=== PATIENT | female | born 2000 | race Caucasian/White ===

== ENCOUNTER 2019-07-21 21:03 | Emergency (ER) | payer OTHER ==
[2019-07-22] MEDS ORDERED: ONDANSETRON 4 MG/2 ML VIAL ONE (00:16)
[2019-07-22] MEDS ORDERED: ACETAMINOPHEN 325 MG TABLET ONE (00:16)
[2019-07-22] MEDS ORDERED: NA CHLORIDE 0.9% 1,000 ML ONE ×2 (00:16→01:16)
[2019-07-22 00:52] LABS: Absolute Lymphocytes (CBC) 0.9 K/uL (0.7-4.9); Basophils % 0.3 % (0-1.3); Hematocrit 39.7 % (36.0-45.0); Lymphocytes % 13.2 % (15.3-44.8); MPV 9.7 fL (7.6-11.3)
[2019-07-22 01:40] LABS: ALT/SGPT 36 U/L (12-78); AST/SGOT 24 U/L (15-37); Alkaline Phosphatase 96 U/L (45-117); BUN Blood Urea Nitrogen 9 mg/dL (7-18); Bicarbonate 25 mmol/L (21-32); Bilirubin Direct 0.1 mg/dL (0-0.2); Bilirubin Total 0.2 mg/dL (0.2-1.0); Glucose Level 93 mg/dL (74-106); Lipase 65 U/L (73-393); Potassium 3.6 mmol/L (3.5-5.1); Protein, Total 6.3 g/dL (6.4-8.2); Sodium Level 141 mmol/L (136-145)
[2019-07-22 01:42] LABS: Urine Blood 3+ (NEG); Urine Glucose NEGATIVE (NEG); Urine Protein NEGATIVE (NEG)
--- NOTE | 2019-07-22 02:59 | ER ---
Nurse's Notes [facility] Name: Ginger Zeng Age: 19 yrs Sex: Female : 2000 Arrival Date: 07/21/2019 Time: 21:06 Bed 17 Private MD: Diagnosis: Fever, unspecified;Abdominal tenderness;Vomiting;Diarrhea, unspecified Presentation: 07/21 21:49 Presenting complaint: Patient states: Reports this AM she started having stomach pain, ea nausea, vomiting and diarrhea x 1 at 3 AM. Transition of care: patient was not received from another setting of care. Onset of symptoms was July 21, 2019. Risk Assessment: Do you want to hurt yourself or someone else? Patient reports no desire to harm self or others. Initial Sepsis Screen: Does the patient meet any 2 criteria? Temp <36.0*C (96.8*F)) or > 38.3*C (100.9*F). Yes. Care prior to arrival: None. 21:49 Method Of Arrival: Ambulatory ea 21:49 Acuity: BRIGITTE 3 ea 07/22 03:25 Initial Sepsis Screen: Does the patient have a suspected source of infection? No. lc1 Patient's initial sepsis screen is negative. 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 - Social history:: Smoking status: Patient/guardian denies using tobacco. - Ebola Screening: : Patient denies travel to an Ebola-affected area in the 21 days before illness onset. - Family history:: not pertinent. Screenin:50 Abuse screen: Denies threats or abuse. Nutritional screening: No deficits noted. ea Tuberculosis screening: No symptoms or risk factors identified. Fall Risk None identified. Assessment: 07/22 00:00 General: Appears in no apparent distress. comfortable, Behavior is calm, cooperative. lc1 Pain: Complains of pain in abdomen Pain currently is 4 out of 10 on a pain scale. Quality of pain is described as pressure, Pain began early this am Is intermittent. Neuro: No deficits noted. Cardiovascular: No deficits noted. Respiratory: No deficits noted. GI: Bowel sounds present X 4 quads. Abd is soft Abdomen is tender to palpation X 4 quads. Reports lower abdominal pain, diarrhea, nausea, vomiting. : No signs and/or symptoms were reported regarding the genitourinary system. EENT: No signs and/or symptoms were reported regarding the EENT system. Derm: No signs and/or symptoms reported regarding the dermatologic system. Musculoskeletal: No signs and/or symptoms reported regarding the musculoskeletal system. 01:00 Reassessment: No changes from previously documented assessment. Patient and/or family lc1 updated on plan of care and expected duration. Pain level reassessed. Patient is alert, oriented x 3, equal unlabored respirations, skin warm/dry/pink. Patient states feeling better. 02:00 Reassessment: No changes from previously documented assessment. Patient and/or family lc1 updated on plan of care and expected duration. Pain level reassessed. Patient is alert, oriented x 3, equal unlabored respirations, skin warm/dry/pink. Patient states feeling better. 03:00 Reassessment: No changes from previously documented assessment. Patient and/or family lc1 updated on plan of care and expected duration. Pain level reassessed. Patient is alert, oriented x 3, equal unlabored respirations, skin warm/dry/pink. Patient states feeling better. Vital Signs: 07/21 21:51 BP 108 / 75; Pulse 90; Resp 18; Temp 100.3; Pulse Ox 99% ; Weight 97.52 kg; Height 5 ea ft. 10 in. (177.80 cm); Pain 02/03; 07/22 00:17 BP 111 / 74; Pulse 111; Resp 18; Temp 100.1(O); Pulse Ox 100% on R/A; 5 01:00 BP 112 / 71; Pulse 83; Resp 18; Temp 100.4(O); Pulse Ox 98% ; lc1 01:45 BP 120 / 70; Pulse 82; Resp 16; Pulse Ox 100% on R/A; lc1 02:45 BP 104 / 70; Pulse 84; Resp 18; Temp 99.3(O); Pulse Ox 98% on R/A; lc1 07/21 21:51 Body Mass Index 30.85 (97.52 kg, 177.80 cm) ED Course: 12/25 21:06 Patient arrived in ED. as 21:50 Triage completed. jael 23:13 Edmundo Carrero MD is Attending Physician. kathryn 23:31 Melinda Hemphill is Primary Nurse. 1 07/22 00:00 No provider procedures requiring assistance completed. Initial lab(s) drawn, by sd, lc1 sent to lab. Urine collected: clean catch specimen, clear. Inserted saline lock: 20 gauge in right antecubital area, using aseptic technique. Blood collected. 00:05 Radiology exam delayed due to lab results not completed at this time. (BUN/Creatinine) sj test not completed at this time. IV insertion attempt and/or patient not having appropriate IV at this time. 00:18 Patient has correct armband on for positive identification. Placed in gown. Bed in low mh5 position. Call light in reach. Side rails up X 1. Adult w/ patient. Warm blanket given. Pulse ox on. NIBP on. 02:00 Patient notified of wait time. 1 02:06 CT Abd/Pelvis - IV Contrast Only In Process Unspecified. EDMS 03:25 IV discontinued, intact, bleeding controlled, Pressure dressing applied. lc1 Administered Medications: 00:10 Drug: NS 0.9% 1000 ml Route: IV; Rate: 1 bolus; Site: right antecubital; lc1 01:16 Follow up: Response: No adverse reaction; IV Status: Completed infusion lc1 00:10 Drug: Tylenol 650 mg Route: PO; lc1 03:27 Follow up: Response: No adverse reaction lc1 00:10 Drug: Zofran 4 mg Route: IVP; Site: right antecubital; lc1 03:27 Follow up: Response: No adverse reaction lc1 01:16 Drug: NS 0.9% 1000 ml Route: IV; Rate: 1 bolus; Site: right antecubital; lc1 03:01 Follow up: Response: No adverse reaction lc1 03:27 Follow up: Response: No adverse reaction; IV Status: Completed infusion lc1 03:07 Drug: Motrin 800 mg Route: PO; 1 03:23 Follow up: Response: No adverse reaction [facility] Outcome: 02:56 Discharge ordered by . kathryn 03:24 Discharged to home ambulatory. 1 03:24 Condition: good 03:24 Discharge instructions given to patient, Instructed on discharge instructions, follow up and referral plans. medication usage, Demonstrated understanding of instructions, follow-up care, medications, Prescriptions given X 3. 03:26 Patient left the ED. lc1 Signatures: Dispatcher [employer] EDMS Edmundo Carrero, MD MD kathryn Knutson, Vicky Forrest, Melinda Burgess lc1 Judy Forrest [facility] Ariane Flowers RN RN jael
--- NOTE | 2019-07-22 03:00 | EDPHYS ---
Physician Documentation [facility] Name: Ginger Zeng Age: 19 yrs Sex: Female : 2000 Arrival Date: 07/21/2019 Time: 21:06 Bed 17 Private MD: ED Physician Edmundo Carrero HPI: 07/22 00:31 This 19 yrs old Female presents to ER via Ambulatory with complaints of kathryn Abdominal Pain. 00:31 The patient presents with abdominal pain in the upper abdomen, in the lower abdomen, kathryn abdominal distention in the epigastric area. Onset: The symptoms/episode began/occurred 1 day(s) ago. The patient presents to the emergency department with nausea, vomiting. Onset: The symptoms/episode began/occurred 1 day(s) ago. Possible causes: unknown. The symptoms are aggravated by nothing. The symptoms are alleviated by nothing. Associated signs and symptoms: Pertinent positives: abdominal pain, fever, nausea, vomiting. 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 - Social history:: Smoking status: Patient/guardian denies using tobacco. - Ebola Screening: : Patient denies travel to an Ebola-affected area in the 21 days before illness onset. - Family history:: not pertinent. ROS: 07/22 00:31 Constitutional: Negative for fever, chills, and weight loss, Eyes: Negative for injury, kathryn pain, redness, and discharge, ENT: Negative for injury, pain, and discharge, Neck: Negative for injury, pain, and swelling, Cardiovascular: Negative for chest pain, palpitations, and edema, Respiratory: Negative for shortness of breath, cough, wheezing, and pleuritic chest pain, Back: Negative for injury and pain, : Negative for injury, bleeding, discharge, and swelling, MS/Extremity: Negative for injury and deformity, Skin: Negative for injury, rash, and discoloration, Neuro: Negative for headache, weakness, numbness, tingling, and seizure, Psych: Negative for depression, anxiety, suicide ideation, homicidal ideation, and hallucinations, Allergy/Immunology: Negative for hives, rash, and allergies, Endocrine: Negative for neck swelling, polydipsia, polyuria, polyphagia, and marked weight changes, Hematologic/Lymphatic: Negative for swollen nodes, abnormal bleeding, and unusual bruising. Abdomen/GI: Positive for abdominal pain, nausea and vomiting, diarrhea. Exam: 00:31 Constitutional: This is a well developed, well nourished patient who is awake, alert, kathryn and in no acute distress. Head/Face: Normocephalic, atraumatic. Eyes: Pupils equal round and reactive to light, extra-ocular motions intact. Lids and lashes normal. Conjunctiva and sclera are non-icteric and not injected. Cornea within normal limits. Periorbital areas with no swelling, redness, or edema. ENT: Nares patent. No nasal discharge, no septal abnormalities noted. Tympanic membranes are normal and external auditory canals are clear. Oropharynx with no redness, swelling, or masses, exudates, or evidence of obstruction, uvula midline. Mucous membranes moist. Neck: Trachea midline, no thyromegaly or masses palpated, and no cervical lymphadenopathy. Supple, full range of motion without nuchal rigidity, or vertebral point tenderness. No Meningismus. Chest/axilla: Normal chest wall appearance and motion. Nontender with no deformity. No lesions are appreciated. Cardiovascular: Regular rate and rhythm with a normal S1 and S2. No gallops, murmurs, or rubs. Normal PMI, no JVD. No pulse deficits. Respiratory: Lungs have equal breath sounds bilaterally, clear to auscultation and percussion. No rales, rhonchi or wheezes noted. No increased work of breathing, no retractions or nasal flaring. Back: No spinal tenderness. No costovertebral tenderness. Full range of motion. Female : Normal external genitalia. Skin: Warm, dry with normal turgor. Normal color with no rashes, no lesions, and no evidence of cellulitis. MS/ Extremity: Pulses equal, no cyanosis. Neurovascular intact. Full, normal range of motion. Neuro: Awake and alert, GCS 15, oriented to person, place, time, and situation. Cranial nerves II-XII grossly intact. Motor strength 5/5 in all extremities. Sensory grossly intact. Cerebellar exam normal. Normal gait. Psych: Awake, alert, with orientation to person, place and time. Behavior, mood, and affect are within normal limits. 00:31 Abdomen/GI: Inspection: abdomen appears normal, Bowel sounds: normal, Palpation: moderate abdominal tenderness, in the right upper quadrant, left upper quadrant, right lower quadrant and left lower quadrant, Liver: no appreciated palpable abnormalities, Hernia: not appreciated. Vital Signs: 07/21 21:51 BP 108 / 75; Pulse 90; Resp 18; Temp 100.3; Pulse Ox 99% ; Weight 97.52 kg; Height 5 ea ft. 10 in. (177.80 cm); Pain 7/10; 07/22 00:17 BP 111 / 74; Pulse 111; Resp 18; Temp 100.1(O); Pulse Ox 100% on R/A; mh5 01:00 BP 112 / 71; Pulse 83; Resp 18; Temp 100.4(O); Pulse Ox 98% ; lc1 01:45 BP 120 / 70; Pulse 82; Resp 16; Pulse Ox 100% on R/A; lc1 02:45 BP 104 / 70; Pulse 84; Resp 18; Temp 99.3(O); Pulse Ox 98% on R/A; lc1 07/21 21:51 Body Mass Index 30.85 (97.52 kg, 177.80 cm) ea MDM: 07/21 23:13 Patient medically screened. [facility] 07/22 00:33 Data reviewed: vital signs, nurses notes, lab test result(s), radiologic studies. [facility] 07/21 23:12 Order name: Basic Metabolic Panel; Complete Time: 01:44 [facility] 07/21 23:12 Order name: CBC with Diff; Complete Time: 01:04 [facility] 07/21 23:12 Order name: Creatinine for Radiology; Complete Time: 01:44 [facility] 07/21 23:12 Order name: Hepatic Function; Complete Time: 01:44 [facility] 07/21 23:12 Order name: Lipase; Complete Time: 01:44 [facility] 07/21 23:12 Order name: Urine Culture [facility] 07/21 23:12 Order name: CT Abd/Pelvis - IV Contrast Only [facility] 07/22 00:13 Order name: Urine Dipstick--Ancillary (enter results); Complete Time: 01:44 [facility] 07/22 00:13 Order name: Urine --Ancillary (enter results); Complete Time: 01:44 [facility] 07/21 23:12 Order name: IV Saline Lock; Complete Time: 00:24 [facility] 07/21 23:12 Order name: Labs collected and sent; Complete Time: 00:24 [facility] 07/21 23:12 Order name: Urine Dipstick-Ancillary (obtain specimen); Complete Time: 00:24 [facility] 07/21 23:12 Order name: Urine Test (obtain specimen); Complete Time: 00:24 [facility] 07/22 02:57 Order name: PO challenge; Complete Time: 03:23 [facility] Administered Medications: 00:10 Drug: NS 0.9% 1000 ml Route: IV; Rate: 1 bolus; Site: right antecubital; 1 01:16 Follow up: Response: No adverse reaction; IV Status: Completed infusion 1 00:10 Drug: Tylenol 650 mg Route: PO; 1 03:27 Follow up: Response: No adverse reaction 1 00:10 Drug: Zofran 4 mg Route: IVP; Site: right antecubital; 1 03:27 Follow up: Response: No adverse reaction [facility] 01:16 Drug: NS 0.9% 1000 ml Route: IV; Rate: 1 bolus; Site: right antecubital; 1 03:01 Follow up: Response: No adverse reaction 1 03:27 Follow up: Response: No adverse reaction; IV Status: Completed infusion 1 03:07 Drug: Motrin 800 mg Route: PO; [facility] 03:23 Follow up: Response: No adverse reaction [facility] Disposition: 07/22/19 02:56 Discharged to Home. Impression: Fever, unspecified, Abdominal tenderness, Vomiting, Diarrhea, unspecified. - Condition is Stable. - Discharge Instructions: Abdominal Pain, Adult, Food Choices to Help Relieve Diarrhea, Adult, Diarrhea, Adult, Fever, Adult, Nausea and Vomiting, Adult, Nausea and Vomiting, Adult, Oiko-eo-Rhio, Abdominal Pain, Adult, Yher-ic-Vsfg, Diarrhea, Adult, Plpq-it-[id number]. - Prescriptions for Bentyl 20 mg Oral Tablet - take 1 tablet by ORAL route every 6 hours As needed; 20 tablet. Pepcid 20 mg Oral Tablet - take 1 tablet by ORAL route every 12 hours for 10 days; 20 tablet. Zofran 4 mg Oral Tablet - take 1 tablet by ORAL route every 12 hours As needed; 20 tablet. - Medication Reconciliation Form, Thank You Letter, Antibiotic Education, Prescription Opioid Use form. - Follow up: Private Physician; When: 2 - 3 days; Reason: Recheck today's complaints, Continuance of care, Re-evaluation by your physician. - Problem is new. - Symptoms have improved. Signatures: Dispatcher [employer] EDMS Edmundo Carrero MD MD cha Calhoun, Melinda lc1 Ariane Flowers RN RN ea Corrections: (The following items were deleted from the chart) 03:26 02:56 07/22/2019 02:56 Discharged to Home. Impression: Fever, unspecified; Abdominal lc1 tenderness; Vomiting; Diarrhea, unspecified. Condition is Stable. Discharge Instructions: Abdominal Pain, Adult, Food Choices to Help Relieve Diarrhea, Adult, Diarrhea, Adult, Fever, Adult, Nausea and Vomiting, Adult, Nausea and Vomiting, Adult, [id number]-ls-[id number], Abdominal Pain, Adult, [id number]-[id number]-Opbn, Diarrhea, Adult, Xzis-yi-Wzwi. Prescriptions for Bentyl 20 mg Oral Tablet - take 1 tablet by ORAL route every 6 hours As needed; 20 tablet, Pepcid 20 mg Oral Tablet - take 1 tablet by ORAL route every 12 hours for 10 days; 20 tablet, Zofran 4 mg Oral Tablet - take 1 tablet by ORAL route every 12 hours As needed; 20 tablet. and Forms are Medication Reconciliation Form, Thank You Letter, Antibiotic Education, Prescription Opioid Use. Follow up: Private Physician; When: 2 - 3 days; Reason: Recheck today's complaints, Continuance of care, Re-evaluation by your physician. Problem is new. Symptoms have improved. kathryn
[2019-07-22] MEDS ORDERED: IBUPROFEN 400 MG TAB ONE (03:07)
[2019-07-22 04:44] VITALS: BP 104/70; TEMP 99.3; O2SAT 98
--- NOTE | 2019-07-22 10:44 | RAD REPORT ---
EXAM DESCRIPTION: Abdomen Pelvis W Contrast CLINICAL HISTORY: ABD PAIN COMPARISON: None. TECHNIQUE: CT ABDOMEN PELVIS WITH IV CONTRAST on 07/21/2019 11:12 PM OFFICE TECHNOLOGIST This exam was performed according to our departmental dose-optimization program, which includes autom ated exposure control, adjustment of the mA and/or kV according to patient size and/or use of iterati ve reconstruction technique. FINDINGS: Lower lungs are clear. Abdomen: Liver is fatty in attenuation. There is no biliary dilatation. Gallbladder is normal in appe arance. The pancreas and spleen are normal in appearance. The adrenal glands and kidneys are unremark able. Abdominal aorta is normal in course and caliber without aneurysm. There is no free air. There is no r etroperitoneal adenopathy. Pelvis: There is no bowel obstruction. Urinary bladder is unremarkable. There is trace free pelvic fl uid. Uterus is normal in size. Appendix is not clearly seen. Skeleton: There are no acute osseous findings. No suspicious bony lesions. IMPRESSION: No definite acute process. Electronically signed by: Neri Kirkpatrick MD 07/22/2019 2:45 AM OFFICE TECHNOLOGIST Due to temporary technical issues with the PACS/Fluency reporting system, reports are being signed by the in house radiologist as a courtesy to ensure prompt reporting. The interpreting radiologist is f ully responsible for the content of the report.
== END 2019-07-22 03:26 | disposition home or self-care (01) ==
LOC: ER 21:03
DX: R10.816 Epigastric abdominal tenderness (principal); R11.10 Vomiting, unspecified; R19.7 Diarrhea, unspecified; Z88.0 Allergy status to penicillin
CPT/HCPCS: 96361; 87088; 85025; 87086; 80048; 36415; 81025; 80076; 81003; 83690; 74177; 96374; 99284; Q9967; J7030 ×2; J2405

== ENCOUNTER 2024-07-15 02:01 | Emergency (ER) | payer OTHER ==
--- NOTE | 2024-07-15 02:57 | EDPHYS ---
Physician Documentation [facility] Name: Ginger Zeng Age: 24 yrs Sex: Female : 2000 Arrival Date: 07/15/2024 Time: 02:01 Bed 11 Private MD: ED Physician Sam Alexander HPI: 07/15 02:08 This 24 yrs old Female presents to ER via Unassigned with complaints of Ear sp4 Pain. 07/16 00:40 Very pleasant 24-year-old female presents with complaint of left ear ringing. Patient sp4 states she will forcefully sneezed yesterday causing left ear pain in the ringing . Patient reports that this is very unpleasant.. 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 - Infectious Disease History:: Denies. - Social history:: Smoking status: Patient denies any tobacco usage or history of. - Family history:: not pertinent. ROS: 07/16 00:40 Constitutional: Negative for fever, chills, and weight loss, positive for left ear sp4 tinnitus All other systems are negative, Exam: 00:40 Constitutional: This is a well developed, well nourished patient who is awake, alert, sp4 and in no acute distress. Head/Face: Normocephalic, atraumatic. Eyes: Pupils equal round and reactive to light, extra-ocular motions intact. Lids and lashes normal. Conjunctiva and sclera are not injected. Cornea within normal limits. Periorbital areas with no swelling, redness, or edema. ENT: Nares patent. No nasal discharge, no septal abnormalities noted. Tympanic membranes are normal and external auditory canals are clear. Oropharynx with no redness, swelling, or masses, exudates, or evidence of obstruction, uvula midline. Mucous membranes moist. Neck: Trachea midline, no thyromegaly or masses palpated, and no cervical lymphadenopathy. Supple, full range of motion without nuchal rigidity, or vertebral point tenderness. Chest/axilla: Normal chest wall appearance and motion. Nontender with no deformity. No lesions are appreciated. Cardiovascular: Regular rate and rhythm with a normal S1 and S2. No gallops, murmurs, or rubs. Normal PMI, no JVD. No pulse deficits. Respiratory: Lungs have equal breath sounds bilaterally, clear to auscultation and percussion. No rales, rhonchi or wheezes noted. No increased work of breathing, no retractions or nasal flaring. Abdomen/GI: Soft, with normal bowel sounds. No distension or tympany. No guarding or rebound. No evidence of tenderness throughout. Back: No spinal tenderness. No costovertebral tenderness. Skin: Warm, dry with normal turgor. Normal color with no rashes, no lesions, and no evidence of cellulitis. MS/ Extremity: Pulses equal, no cyanosis. Neurovascular intact. Full, normal range of motion. Neuro: Awake and alert, GCS 15, oriented to person, place, time, and situation. Cranial nerves II-XII grossly intact. Motor strength 5/5 in all extremities. Sensory grossly intact. Psych: Awake, alert, with orientation to person, place and time. Behavior, mood, and affect are within normal limits Vital Signs: 07/15 02:18 Pulse 65; Resp 17; Temp 98.2(O); Pulse Ox 99% on R/A; Weight 117.93 kg; Height 5 ft. 10 kd3 in. ; Pain 7/10; 02:19 BP 122 / 79; kd3 02:19 BP 122 / 79; kd3 02:18 Body Mass Index 37.31 (117.93 kg, 177.8 cm) kd3 02:18 Pain Scale: Adult kd3 [place] Coma Score: 07/16 00:40 Eye Response: spontaneous(4). Motor Response: obeys commands(6). Verbal Response: sp4 oriented(5). Total: 15. MDM: 07/15 02:18 Medical Screening Exam initiated sp4 07/16 00:40 Differential diagnosis: otitis media, otitis externa, ruptured TM, foreign body, acute sp4 otalgia. Data reviewed: vital signs, nurses notes. ED course: Bilateral ear exam is basically normal. We will provide some decongesting medication and also recommend as needed ibuprofen. No further concerns at this time. Patient may elect to visit with patient ENT office for further evaluation in case tinnitus does not resolve. . Administered Medications: 07/15 03:10 Drug: Ibuprofen PO 800 mg PO once Route: PO; kl 03:10 Drug: diphenhydrAMINE PO 25 mg PO once Route: PO; kl 03:10 Not Given (Other Intervention Used): [id number] mg PO once kl Disposition: 07/16 00:43 Chart complete. sp4 Disposition Summary: 07/15/24 02:56 Discharge Ordered Problem: new sp4 Symptoms: have improved sp4 Condition: Stable sp4 Diagnosis - Acute Left Tinnitis sp4 - Tinnitus, left ear sp4 Followup: sp4 - With: Shawna Schulz MD - When: 7 - 10 days - Reason: Recheck today's complaints Discharge Instructions: - Discharge Summary Sheet sp4 - Tinnitus sp4 Forms: - Patient Portal Instructions sp4 Signatures: Shannen Infante RN RN kl Doucette, Kyli, RN RN kd3 Sam Alexander MD MD sp4
--- NOTE | 2024-07-15 02:57 | ER ---
Nurse's Notes [facility] [place] Name: Ginger Zeng Age: 24 yrs Sex: Female : 2000 Arrival Date: 07/15/2024 Time: 02:01 Bed 11 Private MD: Diagnosis: Acute Left Tinnitis ;Tinnitus, left ear Presentation: 07/15 02:19 Chief complaint: Patient states: I have 7/10 pain in my left ear since Friday. 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 Coronavirus screen: Vaccine status: Patient reports receiving the 2nd dose of the covid vaccine. Ebola Screen: No symptoms or risks identified at this time. Initial Sepsis Screen: Does the patient meet any 2 criteria? No. Patient's initial sepsis screen is negative. Does the patient have a suspected source of infection? No. Patient's initial sepsis screen is negative. Risk Assessment: Do you want to hurt yourself or someone else? Patient reports no desire to harm self or others. Onset of symptoms was July 14, 2024. 02:19 Method Of Arrival: Ambulatory kd3 02:19 Acuity: BRIGITTE 4 kd3 Triage Assessment: 02:21 General: Appears in no apparent distress. Behavior is calm, cooperative. Pain: kd3 Complains of pain in left ear. EENT: Reports pain in left ear. 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 - Infectious Disease History:: Denies. - Social history:: Smoking status: Patient denies any tobacco usage or history of. - Family history:: not pertinent. Screenin:11 [facility] ED Fall Risk Assessment (Adult) History of falling in the last 3 months, kl including since admission No falls in past 3 months (0 pts) Confusion or Disorientation No (0 pts) Intoxicated or Sedated No (0 pts) Impaired Gait No (0 pts) Mobility Assist Device Used No (0 pt) Altered Elimination No (0 pt) Score/Fall Risk Level 0 - 2 = Low Risk Oriented to surroundings, Maintained a safe environment. Abuse screen: Denies threats or abuse. Nutritional screening: No deficits noted. Tuberculosis screening: No symptoms or risk factors identified. Assessment: 03:10 General: Appears in no apparent distress. Behavior is calm, cooperative. Pain: melquiades Complains of pain in left ear Pain currently is 3 out of 10 on a pain scale. Neuro: No deficits noted. Cardiovascular: No deficits noted. Respiratory: No deficits noted. GI: No deficits noted. : No deficits noted. No signs and/or symptoms were reported regarding the genitourinary system. EENT: No deficits noted. No signs and/or symptoms were reported regarding the EENT system. Derm: No deficits noted. No signs and/or symptoms reported regarding the dermatologic system. Musculoskeletal: No deficits noted. No signs and/or symptoms reported regarding the musculoskeletal system. Vital Signs: 02:18 Pulse 65; Resp 17; Temp 98.2(O); Pulse Ox 99% on R/A; Weight 117.93 kg; Height 5 ft. 10 kd3 in. ; Pain 7/10; 02:19 BP 122 / 79; kd3 02:19 BP 122 / 79; kd3 02:18 Body Mass Index 37.31 (117.93 kg, 177.8 cm) kd3 02:18 Pain Scale: Adult kd3 [place] Coma Score: 07/16 00:40 Eye Response: spontaneous(4). Motor Response: obeys commands(6). Verbal Response: sp4 oriented(5). Total: 15. ED Course: 07/15 02:03 Patient arrived in ED. gm2 02:08 Sam Alexander MD is Attending Physician. sp4 02:21 Triage completed. kd3 02:21 Arm band placed on right wrist. kd3 02:56 Shawna Schulz MD is Referral Physician. sp4 02:57 Carmen Chawla RN is Primary Nurse. kd3 03:11 No provider procedures requiring assistance completed. Patient did not have IV access kl during this emergency room visit. 03:12 Patient has correct armband on for positive identification. kl Administered Medications: 03:10 Drug: Ibuprofen PO 800 mg PO once Route: PO; kl 03:10 Drug: diphenhydrAMINE PO 25 mg PO once Route: PO; kl 03:10 Not Given (Other Intervention Used): [id number] mg PO once kl Medication: 03:12 VIS not applicable for this client. melquiades Outcome: 02:56 Discharge ordered by MD. ha 03:12 Discharged to home ambulatory, melquiades 03:12 Condition: stable 03:12 Discharge instructions given to patient, Instructed on discharge instructions, follow up and referral plans. medication usage, Demonstrated understanding of instructions, follow-up care, medications, 03:12 Patient left the ED. Signatures: Shannen Infante RN RN kl Doucette, Kyli, RN RN kd3 Sam Alexander MD MD sp4 Natividad Null [facility]
[2024-07-15] MEDS ORDERED: DIPHENHYDRAMINE 25 MG TAB/CAP ONE (03:04)
[2024-07-15] MEDS ORDERED: IBUPROFEN 400 MG TAB ONE (03:04)
[2024-07-15 03:17] VITALS: TEMP 98.2; O2SAT 99
[2024-07-15 03:18] VITALS: BP 122/79
== END 2024-07-15 03:12 | disposition home or self-care (01) ==
LOC: ER 02:01
DX: H93.12 Tinnitus, left ear (principal); Z88.0 Allergy status to penicillin
CPT/HCPCS: 99283